=== PATIENT | female | born 1970 | race Caucasian/White ===

== ENCOUNTER 2019-02-09 18:03 | Emergency (ER) | payer BC ==
[~2019-02-09] VITALS: Wt 126.0 kg
[2019-02-09 18:07] VITALS: PULSE 114; RESP 18
[2019-02-09] MEDS ORDERED: IBUPROFEN 800 MG TAB PO ONE (21:00)
[2019-02-09] MEDS ORDERED: IBUP800T48 PO (21:29)
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
== END 2019-02-09 23:15 | disposition home or self-care (01) ==
LOC: FTE 18:03
DX: S63.501A Unspecified sprain of right wrist, initial encounter (principal); I10 Essential (primary) hypertension; E11.9 Type 2 diabetes mellitus without complications; V89.2XXA Person injured in unspecified motor-vehicle accident, traffic, initial encounter